=== PATIENT | male | born 1995 | race African-American/Black ===

== ENCOUNTER 2017-10-02 20:42 | Emergency (ER) | payer OTHER ==
[~2017-10-02] VITALS: Ht 172.7 cm; Wt 80.0 kg
[2017-10-02 20:43] VITALS: BP 144/70; PULSE 108; RESP 16; TEMP 102.2; O2SAT 98
[2017-10-02] MEDS ORDERED: PENI500T PO (22:27)
--- NOTE | 2017-10-02 22:28 | PD ---
HPI Chief Complaint: Cold / Flu Symptoms Time Seen by Provider: 22:17 Travel History International Travel<30 days: No Contact w/Intl Traveler<30days: No Traveled to known affect area: No History of Present Illness HPI 22-year-old male presents to the emergency department for evaluation of sore throat and fever that started 2 days ago. Patient states it is painful to swallow. Patient reports associated body aches, chills. No cough, congestion, abdominal pain, chest pain, shortness breath. Patient states he took Motrin around 2 PM for fever. He works [employer] and works around children. Pain radiates to left ear. He has no chronic medical problems and takes no prescribed medications. No exacerbating or alleviating factors. Moderate severity. PFSH Past Medical History Medical History: Denies Significant Hx Respiratory: Yes (ASTHMA A KID) Tetanus Vaccination: Unknown Influenza Vaccination: Yes Past Surgical History Surgical History: No Previous Surgery Social History Alcohol Use: No Tobacco Use: No Substance Use: No Allergies-Medications (Allergen,Severity, Reaction): Coded Allergies: No Known Allergies (Unverified , 10/02/17) Reported Meds & Prescriptions Reported Meds & Active Scripts Active Penicillin V Potassium 500 Mg Tab 500 Mg PO Q8H 10 Days Review of Systems Except as stated in HPI: all other systems reviewed are Neg Physical Exam Narrative GENERAL: Well-nourished, well-developed male patient, patient's temperature 102.2. SKIN: Focused skin assessment warm/dry. HEAD: Normocephalic. Atraumatic ENT: Mucosa pink and moist. Bilateral tonsils erythematous with exudates to the left tonsil. Uvula is midline. No uvular edema. No evidence of peritonsillar abscess. No uvular, palatal, or tonsillar deviation. Airway patent. Nasal turbinates appear normal without nasal blood, purulent drainage or septal hematoma. Bilateral tympanic membranes are clear without erythema or perforation. EYES: No scleral icterus. No injection or drainage. NECK: Supple, trachea midline. No JVD or lymphadenopathy. CARDIOVASCULAR: Regular rate and rhythm without murmurs, gallops, or rubs. RESPIRATORY: Breath sounds equal bilaterally. No accessory muscle use. Lungs sounds are clear to auscultation. GASTROINTESTINAL: Abdomen soft, non-tender, nondistended. MUSCULOSKELETAL: No cyanosis, or edema. BACK: Nontender without obvious deformity. No CVA tenderness. Data Data Last Documented VS Vital Signs Date Time Temp Pulse Resp B/P (MAP) Pulse Ox O2 Delivery O2 Flow Rate FiO2 10/02/17 20:43 102.2 108 16 144/70 (94) 98 Room Air Orders Orders Group A Rapid Strep Screen (10/02/17 22:16) Ibuprofen (Motrin) (10/02/17 22:30) Penicillin V Potassium (Veetids) (10/02/17 23:00) MDM Medical Decision Making Medical Screen Exam Complete: Yes Emergency Medical Condition: Yes Medical Record Reviewed: Yes Differential Diagnosis Strep pharyngitis versus viral pharyngitis versus URI versus mononucleosis versus peritonsillar abscess Narrative Course 22-year-old male presents to the emergency department for evaluation of fever and sore throat. He appears well on exam. No evidence of peritonsillar abscess on exam. Patient is given Motrin 600 mg by mouth. Strep is negative. However, due to signs/symptoms, patient will be treated for strep throat. Patient is given Pen VK 500 mg PO. He will be discharged with a prescription for the same. The patient was discharged in stable condition with instructions, including return instructions and follow up instructions. Diagnosis Primary Impression: Exudative pharyngitis Referrals: Primary Care Physician call for appointment Patient Instructions: General Instructions, Strep Throat (ED) Departure Forms: Tests/Procedures, Work Release Enter return to work date: Oct 05, 2017 Additional Instructions: Take antibiotics as directed until gone. Warm, salt water gargles. Tylenol every 4 hours as needed for fever/pain. Ibuprofen every 6-8 hours as needed for fever/pain. Follow up with your primary care physician. Return to the emergency department for any acute, worsening of symptoms. Med/Other Pt SpecificInfo: Prescription(s) given Scripts Penicillin V Potassium (Penicillin V Potassium) 500 Mg Tab 500 MG PO Q8H for Infection for 10 Days, #30 TAB 0 Refills Prov: GonzaloIngrid 10/02/17 Disposition: 01 DISCHARGE HOME Condition: Stable Ingrid Sánchez Oct 02, 2017 22:28
[2017-10-02] MEDS ORDERED: IBUPROFEN 600 MG TAB PO ONE (22:30)
[2017-10-02] MEDS ORDERED: PENICILLIN V POTASSIUM 500 MG TAB PO ONE (23:00)
== END 2017-10-02 23:55 | disposition home or self-care (01) ==
LOC: NEPC 20:42
DX: J02.9 Acute pharyngitis, unspecified (principal); J45.909 Unspecified asthma, uncomplicated
CPT/HCPCS: 87081; 87880; 99283